=== PATIENT | female | born 1955 | race Two or more races ===

== ENCOUNTER → 2020-09-15 12:14 | Outpatient (CLI) | payer SELFPAY ==
--- NOTE | ~2020-09-15 | XR_ITS ---
EXAMINATION: XR foot LT min 3V EXAM DATE: 09/15/2020 13:12 INDICATION: Initial encounter following injury, with pain of the left foot. TECHNIQUE: Left foot dorsoplantar, lateral and oblique projections obtained and reviewed. There is n o prior study for comparison. FINDINGS: Comminuted left 5th metatarsal bone closed posttraumatic fractures involving the base and s haft of the metatarsal bone. There is overlying soft tissue swelling. This finding has been indicated , marked on the examination for review, clinical correlation. No other bones appear fractured. Tiny i nferior calcaneal spur. IMPRESSION: Acute comminuted left 5th metatarsal shaft and base fractures. Reviewed, dictated and finalized at location A.
== END ==
PROVIDERS: PCP Family Medicine
DX: S92.352A Displaced fracture of fifth metatarsal bone, left foot, initial encounter for closed fracture (principal)
CPT/HCPCS: 73630